=== PATIENT | female | born 2000 | race Caucasian/White ===

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

== ENCOUNTER 2020-02-18 15:13 | Outpatient (CLI) | payer BC, SELFPAY ==
[2020-02-18 15:33] VITALS: BMI 32.5
[2020-02-18 15:50] VITALS: BP 148/83; PULSE 94; RESP 17; TEMP 36.8
[2020-02-18 15:51] VITALS: BMI 32.5
[2020-02-18 15:53] LABS: Microscopic, Urine URINE MICROSCOPIC (MICROSCOPIC)
[2020-02-18 15:55] LABS: Appearance,Urine CLEAR (Clear); Bilirubin,Urine Negative (Negative); Blood, Urine TRACE-I (Negative); Color,Urine YELLOW (Yellow); Glucose,Urine (UA) Negative (Negative); Ketones,Urine Negative (Negative); Leukocyte Esterase,Urine TRACE (Negative); Nitrate,Urine Negative (Negative); PH,Urine 6.5 (5.0-8.5); Protein,Urine Negative (Negative); Urobilinogen,Urine 0.2 EU/dl (0.2)
[2020-02-18 16:01] LABS: Bacteria,Urine Trace /lpf; Hyaline Casts,Urine Occasional #/lpf (0); RBC,Urine Occasional #/hpf (0-3)
[2020-02-18 16:06] LABS: Amphetamine/Metha Screen,Urine Negative ng/ml (<1000); Barbiturates Screen,Urine Negative ng/ml (<200)
[2020-02-18 16:07] LABS: Benzodiazepines Screen,Urine Negative ng/ml (<200); Cannabinoid Screen,Urine Negative ng/ml (<50)
[2020-02-18 16:08] LABS: Cocaine Screen,Urine Negative ng/ml (<300)
[2020-02-18 16:09] LABS: Methadone Screen,Urine Negative ng/ml (<300); Opiate Screen,Urine Negative ng/ml (<300)
[2020-02-18 16:10] LABS: Phencyclidine Screen,Urine Negative ng/ml (<25)
== END 2020-02-18 16:55 | disposition home or self-care (01) ==
LOC: OBOUT 15:17 → OB 15:19
PROVIDERS: Visit Provider Obstetrics & Gynecology
DX: O16.3 Unspecified maternal hypertension, third trimester (principal); Z3A.35 35 weeks gestation of pregnancy
CPT/HCPCS: 59025; 80305; 81001; G0463

== ENCOUNTER 2021-09-25 03:09 | Emergency (ER) | payer BC, SELFPAY ==
[2021-09-25 03:10] VITALS: BP 148/97; PULSE 97; RESP 16; TEMP 36.8; O2SAT 98; BMI 32.5
--- NOTE | 2021-09-25 03:33 | US_ITS ---
PROCEDURE INFORMATION: Exam: US , Transvaginal Exam date and time: 09/25/2021 3:33 AM Age: 21 years old Clinical indication: Lmp or gestational age (in weeks): 8; Antepartum complications; ; Patient HX: Woke up x5 hrs ago with vaginal bleeding; Additional info: Bleeding during TECHNIQUE: Imaging protocol: Real-time transvaginal obstetrical ultrasound of the maternal pelvis with image documentation. Transvaginal imaging was used for better evaluation of the fetus, adnexa, and/or cervix. COMPARISON: No relevant prior studies available. FINDINGS: Gestation: A yolk sac measuring 0.6 side of cm is noted. heart rate: Heart rate of 167 bpm was noted. Placenta: There is a small area subchorionic hemorrhage measuring 1.7 x 0.7 x 1.4 cm present. BIOMETRY: Gestational age (AUA): Intrauterine gestation with a crown lump length of 2.0 cm is seen this a colo masoud to it at mean gestational age of 8 weeks and 5 days. MATERNAL: Right ovary/adnexa: The right ovary measures 4.0 x 3.4 x 1.0 cm. Left ovary/adnexa: The left ovary 3.1 x 7.3 x 2.0 cm. IMPRESSION: Single viable intrauterine gestation with a mean gestational age of 8 weeks and 5 days. Small to moderate size area of subchorionic hemorrhage is present.
[2021-09-25 03:40] LABS: Microscopic, Urine URINE MICROSCOPIC (MICROSCOPIC)
[2021-09-25 03:43] LABS: Basophils # 0.1 K/mm3 (0-0.2); Basophils % 0.8 % (0.1-2.0); Eosinophils # 0.3 K/mm3 (0.0-0.4); Eosinophils % 1.8 % (0.1-12.0); Hematocrit 38.8 % (37.0-47.0); Hemoglobin 13.1 g/dL (12.2-16.2); Lymphocytes # 5.9 K/mm3 (0.7-4.5); Lymphocytes % 41.9 % (10-50); Mean Corpuscular HGB Conc 33.8 g/dL (31.8-35.4); Mean Corpuscular Hemoglobin 30.3 pg (27.0-31.2); Mean Corpuscular Volume 89.7 fl (81-99); Mean Platelet Volume 6.8 fl (7.4-10.4); Monocytes # 0.9 K/mm3 (0.1-1.0); Monocytes % 6.4 % (1.7-9.3); Neutrophils # 6.9 K/mm3 (1.8-7.8); Neutrophils % 49.1 % (37.0-80.0); Platelet Count 392 K/mm3 (142-424); Red Blood Count 4.32 M/mm3 (4.20-5.40); Red Cell Distribution Width 12.6 % (11.5-17.5)
[2021-09-25 03:50] LABS: Alanine Aminotransferase 16 U/L (12-78); Albumin Level 4.4 g/dl (3.5-5.0); Albumin/Globulin Ratio 1.5 (1.1-1.8); Alkaline Phosphatase 58 U/L (38-126); Anion Gap 11.7 mEq/L (5-15); Aspartate Amino Transferase 34 U/L (14-36); Bilirubin,Total 0.3 mg/dl (0.2-1.3); Blood Urea Nitrogen 10 mg/dl (7-17); Calcium 9.5 mg/dl (8.4-10.2); Carbon Dioxide 24 mmol/L (22.0-30.0); Chloride 103 mmol/L (98-107); Creatinine Clearance Estimated 213 mL/min (50-200); Estimated Glomerular Filt Rate 125 ml/min (>60); GFR (African American) 151 ML/MIN (>60); Globulin 2.9 g/dL (1.3-3.2); Glucose 103 mg/dl (74-100); Potassium 3.7 mmoL/L (3.5-5.1); Sodium 135 mmol/L (136-145); Total Protein,Serum 7.3 g/dl (6.3-8.2)
[2021-09-25 03:55] LABS: Appearance,Urine CLOUDY (Clear); Bilirubin,Urine Negative (Negative); Blood, Urine 3+ (Negative); Glucose,Urine (UA) Negative (Negative); Ketones,Urine Negative (Negative); Leukocyte Esterase,Urine TRACE (Negative); Nitrate,Urine Negative (Negative); PH,Urine 6.5 (5.0-8.5); Protein,Urine 1+ (Negative); Specific Gravity, Urine >= 1.030 (1.005-1.030); Urobilinogen,Urine 0.2 EU/dl (0.2)
[2021-09-25 03:57] LABS: Color,Urine Amber (Yellow)
[2021-09-25 04:00] VITALS: BP 121/74; PULSE 76; O2SAT 100
[2021-09-25 04:06] LABS: Bacteria,Urine 1+ /lpf; RBC,Urine TNTC #/hpf (0-3)
[2021-09-25 05:00] VITALS: BP 141/71; PULSE 71; O2SAT 100
[2021-09-25 05:30] VITALS: BP 141/73; PULSE 77; O2SAT 100
--- NOTE | 2021-09-25 06:12 | HMH.EDPREG ---
ED Disposition Clinical Impression: Qualifiers: Weeks of gestation: 8 weeks Qualified Code(s): Z3A.08 - 8 weeks gestation of Subchorionic hemorrhage in first trimester Qualifiers: Fetus number: single or unspecified fetus Qualified Code(s): O41.8X10 - Other specified disorders of amniotic fluid and membranes, first trimester, not applicable or unspecified Disposition: Home, Self-Care Condition on Discharge: Good Instructions: DI for Vaginal Bleeding During Additional Instructions: call your ob this am Referrals: Provider,Referral, [Primary Care Provider] - - Critical Care Critical Care Time: No Attestation: On 09/25/21, the high probability of a clinically significant, sudden or life threatening deterioration of the following system(s) required my full and direct attention, intervention and personal management. The time I documented below is in addition to time spent performing reported procedures but includes the following listed in this critical care notation. Medical Decision Making - Medical Records Medical records reviewed: Yes: I reviewed the patient's medical records. - Ethan Inquiry Pt receiving controlled substance: No Vital Signs: 09/25/21 03:10 09/25/21 04:00 09/25/21 05:00 Temperature 98.3 F Temperature Source Oral Pulse Rate 76 71 Pulse Rate [Left] 97 H Respiratory Rate 16 Blood Pressure 121/74 141/71 H Blood Pressure [Left Arm] 148/97 H Blood Pressure Mean [Left Arm] 114 02 Sat by Pulse Oximetry 98 100 100 Oxygen Delivery Method Room Air Room Air Room Air 09/25/21 05:30 Temperature Temperature Source Pulse Rate 77 Pulse Rate [Left] Respiratory Rate Blood Pressure 141/73 H Blood Pressure [Left Arm] Blood Pressure Mean [Left Arm] 02 Sat by Pulse Oximetry 100 Oxygen Delivery Method Room Air - Lab Data Lab results reviewed: Yes: I reviewed the patient's lab results. Lab Results 09/25/21 03:16: Urine Color Jocelin, Urine Appearance Cloudy, Urine pH 6.5, Ur Specific [place] >= 1.030, Urine Protein 1+, Urine Glucose (UA) Negative, Urine Ketones Negative, Urine Blood 3+, Urine Nitrate Negative, Urine Bilirubin Negative, Urine Urobilinogen 0.2, Ur Leukocyte Esterase Trace, Urine RBC Tntc, Urine WBC 3-5, Urine Bacteria 1+ 09/25/21 03:16: WBC 14.0 H, RBC 4.32, Hgb 13.1, Hct 38.8, MCV 89.7, MCH 30.3, MCHC 33.8, RDW 12.6, Plt Count 392, MPV 6.8 L, Neut % (Auto) 49.1, Lymph % (Auto) 41.9, [place] % (Auto) 6.4, Eos % (Auto) 1.8, Baso % (Auto) 0.8, Neut # (Auto) 6.9, Lymph # (Auto) 5.9 H, [place] # (Auto) 0.9, Eos # (Auto) 0.3, Baso # (Auto) 0.1 09/25/21 03:16: Sodium 135 L, Potassium 3.7, Chloride 103, Carbon Dioxide 24, Anion Gap 11.7, BUN 10, Creatinine 0.60, Estimated Creat Clear 213, Estimated GFR 125, Est GFR ( Amer) 151, Glucose 103 H, Calcium 9.5, Total Bilirubin 0.3, AST 34, ALT 16, Alkaline Phosphatase 58, Total Protein 7.3, Albumin 4.4, Globulin 2.9, Albumin/Globulin Ratio 1.5 09/25/21 03:16: HCG, Quant [id number] H Result diagrams: 09/25/21 03:16 09/25/21 03:16 Orders (Tests/Meds): ED MEDICATIONS Discontinued Medications Generic Name Dose Route Start Last Admin Trade Name Freq PRN Reason Stop Dose Admin Sodium Chloride 1,000 mls @ 999 mls/hr 09/25/21 03:45 09/25/21 03:41 Sod Chlor 0.9% 1000ml Bag IV 09/25/21 04:45 999 mls/hr .Q1H1M RIO Administration ORDERS Category Date Time Status ABO/RH Type Stat BBK 09/25/21 06:25 Received - US Data US Images: Pelvis ED US Reviewed: Yes: I have viewed radiologist's interpretation Findings Narrative: iup with subchorioic hemmorrhage Medical Decision Narrative: please call ob this am for close follow up HPI - General Chief complaint: Vaginal Bleeding Stated complaint: Possible Miscarriage 8 wks Time Seen by Provider: 09/25/21 04:00 Mode of Arrival: Ambulatory Source of Information: Patient, Medical Record Limitations: No Limitati
[2021-09-25 07:26] VITALS: BP 126/75; PULSE 76; RESP 18; TEMP 37; O2SAT 100
== END 2021-09-25 07:26 | disposition home or self-care (01) ==
PROVIDERS: Emergency Provider Emergency Medicine; Referring Provider Obstetrics & Gynecology
DX: O41.8X10 Other specified disorders of amniotic fluid and membranes, first trimester, not applicable or unspecified (principal); Z3A.08 8 weeks gestation of pregnancy
CPT/HCPCS: 36415; 76817; 80053; 81001; 84702; 85025; 86900; 86901; 96365; 99283

== ENCOUNTER 2023-02-15 13:46 | Emergency (ER) | payer BC, SELFPAY ==
--- NOTE | 2023-02-15 13:51 | PC.NURSE ---
Dr. Munson at BS for pt eval
--- NOTE | 2023-02-15 13:52 | HMH.EDGENADL ---
Discharge Plan Disposition Patient Disposition: Home, Self-Care Condition: Good Prescriptions Prescriptions: No Action phenazopyridine 200 MG Tablet 200 pow PO TID Qty: 6 0RF ciprofloxacin HCl [Cipro] 500 MG Tablet 500 mg PO BID Qty: 20 0RF promethazine 12.5 MG tablet 12.5 mg PO Q6H PRN (Reason: Vomiting) Qty: 6 0RF Referrals Follow up/Referrals: Provider,Referral, MD [Primary Care Provider] - See instructions Clinical Impressions Clinical Impression: Enteritis Instructions Patient Instructions: DI for Gastrointestinal Bleeding Discharge ED Provider: Son Munson General Adult HPI General Chief complaint: GI Bleed Stated complaint: Rectal bleeding Time Seen by Provider: 02/15/23 13:49 History of Present Illness HPI narrative: This is a very pleasant 22-year-old lady with no significant past medical history who presents to the ED with a chief complaint of rectal bleeding. This happened just prior to arrival. Patient described bright red blood. Yesterday she had some abdominal cramping but denies any pain today. No melena. No hematemesis. No coffee-ground emesis. No history of GI bleeding. Denies any syncope, presyncope, chest pain, shortness of breath. Related Data Previous Rx's Medication Instructions Recorded ciprofloxacin HCl 500 mg tablet 500 mg PO BID ##20 10/22/18 (Cipro) phenazopyridine 200 mg tablet 200 pow PO TID ##6 10/22/18 promethazine 12.5 mg tablet 12.5 mg PO Q6H PRN Vomiting #6 tabs 09/04/19 Allergies Allergy/AdvReac Type Severity Reaction Status Date / Time sulfamethoxazole Allergy Verified 08/07/18 19:28 [From Bactrim] trimethoprim [From Bactrim] Allergy Verified 08/07/18 19:28 [facility] Disclaimer: The information contained in this section may have been updated after the patient was seen, as this information can be updated by other users. Social History Smoking Status: Never smoker alcohol intake: never current occupational status: employed Travel in the last 8 weeks: None ROS Obtained: Yes All systems reviewed & no additional complaints except as documented Physical Exam General General appearance: alert Head Head exam: atraumatic Eye Eye exam: Present normal appearance Neck Neck exam: Present normal inspection Chest Chest inspection: Present normal inspection Respiratory Respiratory exam: Present normal lung sounds bilaterally Cardiovascular Cardiovascular exam: Present regular rate and normal rhythm Abdominal Exam Abdominal exam: Present soft Neurological Exam Neurological exam: Present alert Medical Decision Making Ethan Inquiry Pt receiving controlled substance: No Vital Signs: 02/15/23 14:08 02/15/23 14:08 02/15/23 14:15 Temperature 98.5 F Temperature Source Oral Pulse Rate 93 H 95 H Pulse Rate [Left] 100 H Respiratory Rate 16 Blood Pressure Blood Pressure [Right Arm] 136/87 Blood Pressure Mean Blood Pressure Mean [Right Arm] 103 Blood Pressure Source Blood Pressure Position 02 Sat by Pulse Oximetry 98 98 99 Oxygen Delivery Method 02/15/23 14:30 02/15/23 15:30 Temperature 98.1 F Temperature Source Oral Pulse Rate 86 83 Pulse Rate [Left] Respiratory Rate 18 Blood Pressure 133/75 125/78 Blood Pressure [Right Arm] Blood Pressure Mean 94 Blood Pressure Mean [Right Arm] Blood Pressure Source Automatic Cuff Blood Pressure Position Sitting 02 Sat by Pulse Oximetry 99 Oxygen Delivery Method Room Air Room Air Lab Data Lab Results 02/15/23 14:00: WBC 10.2, RBC 4.48, Hgb 13.6, Hct 39.7, MCV 88.8, MCH 30.3, MCHC 34.1, RDW 12.7, Plt Count 336, MPV 7.4, Neut % (Auto) 47.7, Lymph % (Auto) 40.4, [place] % (Auto) 8.7, Eos % (Auto) 2.5, Baso % (Auto) 0.7, Neut # (Auto) 4.9, Lymph # (Auto) 4.1, [place] # (Auto) 0.9, Eos # (Auto) 0.3, Baso # (Auto) 0.1 02/15/23 14:00: Sodium 139, Potassium 3.5, Chloride 98, Carbon Dioxide 25, Anion Gap 19.5 H, BUN 11, Creatin
--- NOTE | 2023-02-15 13:54 | CT_ITS ---
PROCEDURE INFORMATION: Exam: CT Abdomen And Pelvis With Contrast Exam date and time: 02/15/2023 2:51 PM Age: 22 years old Clinical indication: Abdominal pain; Localized; Lower; Additional info: Abd pain/ gi bleeding TECHNIQUE: Imaging protocol: Computed tomography of the abdomen and pelvis with contrast. Radiation optimization: All CT scans at this facility use at least one of these dose optimization techniques: automated exposure control; mA and/or kV adjustment per patient size (includes targeted exams where dose is matched to clinical indication); or iterative reconstruction. Contrast material: ISOVUE; Contrast volume: 75 ml; Contrast route: IV; REPORTING DATA: Count of CT and Cardiac NM exams in prior 12 months: This patient has received 0 known CTs and 0 known cardiac nuclear medicine studies in the 12 months prior to the current study. COMPARISON: CR ABDACU ABD ACUTE(MUL VIEWS) 08/07/2016 7:52 PM FINDINGS: Lungs: Lung bases are unremarkable. Mediastinal space: Distal esophagus is fluid distended which can be seen in the context of esophageal dysmotility. Liver: No focal hepatic lesions. A focus of hypoattenuation within the left hepatic lobe adjacent to the falciform ligament likely represents focal fatty infiltration and/or perfusional changes. Gallbladder and bile ducts: Gallbladder is distended without radiopaque cholelithiasis. No biliary ductal dilation. Pancreas: No peripancreatic fluid stranding. No main pancreatic ductal dilation. Spleen: No splenomegaly. Adrenal glands: The adrenal glands are normal. Kidneys and ureters: Nephrograms are symmetric. No nephrolithiasis or hydroureteronephrosis on either side. No solid lesions Stomach and bowel: There is circumferential wall thickening and stratification of the wall along the proximal small bowel loops. No discrete transition point. No discrete hemorrhage. Appendix: A normal appendix is identified. Intraperitoneal space: There is no evidence of free intraperitoneal or pelvic fluid. Vasculature: Aorta is nonaneurysmal. Lymph nodes: No evidence of retroperitoneal or mesenteric lymphadenopathy. Urinary bladder: Urinary bladder is unremarkable. Reproductive: There is an intrauterine contraceptive device in place, which appears appropriately positioned within the endometrial canal. Bones/joints: Unremarkable. No acute fracture. Soft tissues: Unremarkable. IMPRESSION: 1. Findings can be attributed to inflammatory/infectious enteritis in the appropriate clinical context. No hemorrhagic source in the abdomen or pelvis. 2. Distal esophagus is fluid distended which can be seen in the context of esophageal dysmotility.
[2023-02-15 14:08] VITALS: BP 136/87; PULSE 100; PULSE 93; RESP 16; TEMP 36.9; O2SAT 98; BMI 34.9
[2023-02-15 14:11] LABS: Chloride 98 mmol/L (98-107); Potassium 3.5 mmoL/L (3.5-5.1); Sodium 139 mmol/L (136-145)
[2023-02-15 14:12] LABS: Basophils # 0.1 K/mm3 (0-0.2); Basophils % 0.7 % (0.1-2.0); Eosinophils # 0.3 K/mm3 (0.0-0.4); Eosinophils % 2.5 % (0.1-12.0); Hematocrit 39.7 % (37.0-47.0); Hemoglobin 13.6 g/dL (12.2-16.2); Lymphocytes # 4.1 K/mm3 (0.7-4.5); Lymphocytes % 40.4 % (10-50); Mean Corpuscular HGB Conc 34.1 g/dL (31.8-35.4); Mean Corpuscular Hemoglobin 30.3 pg (27.0-31.2); Mean Corpuscular Volume 88.8 fl (81-99); Mean Platelet Volume 7.4 fl (7.4-10.4); Monocytes # 0.9 K/mm3 (0.1-1.0); Monocytes % 8.7 % (1.7-9.3); Neutrophils # 4.9 K/mm3 (1.8-7.8); Neutrophils % 47.7 % (37.0-80.0); Platelet Count 336 K/mm3 (142-424); Red Blood Count 4.48 M/mm3 (4.20-5.40); Red Cell Distribution Width 12.7 % (11.5-17.5); White Blood Count 10.2 K/mm3 (4.8-10.8)
[2023-02-15 14:14] LABS: Alanine Aminotransferase 31 U/L (12-78); Albumin Level 4.7 g/dl (3.5-5.0); Albumin/Globulin Ratio 1.5 (1.1-1.8); Alkaline Phosphatase 81 U/L (38-126); Anion Gap 19.5 mEq/L (5-15); Aspartate Amino Transferase 37 U/L (14-36); Blood Urea Nitrogen 11 mg/dl (7-17); Carbon Dioxide 25 mmol/L (22.0-30.0); Estimated Glomerular Filt Rate 78 ml/min (>60); GFR (African American) 94 ML/MIN (>60); Globulin 3.2 g/dL (1.3-3.2); Total Protein,Serum 7.9 g/dl (6.3-8.2)
[2023-02-15 14:15] VITALS: PULSE 95; O2SAT 99
[2023-02-15 14:15] LABS: Calcium 9.7 mg/dl (8.4-10.2); Glucose 119 mg/dl (74-100)
[2023-02-15 14:16] LABS: Bilirubin,Total 0.1 mg/dl (0.2-1.3)
--- NOTE | 2023-02-15 14:21 | PC.NURSE ---
pt ambulatory to restroom with assistance, no complications
--- NOTE | 2023-02-15 14:23 | PC.NURSE ---
pt ambulatory back to ED room 10 without complications
[2023-02-15 14:30] VITALS: BP 133/75; PULSE 86; O2SAT 99
[2023-02-15 14:42] LABS: HCG,Quantitative < 2 mIU/ml (0-5.42)
--- NOTE | 2023-02-15 14:47 | PC.NURSE ---
pt transported to radiology via wheelchair.
--- NOTE | 2023-02-15 15:16 | PC.NURSE ---
er at bedside
[2023-02-15 15:30] VITALS: BP 125/78; PULSE 83; RESP 18; TEMP 36.7; O2SAT 98
== END 2023-02-15 15:33 | disposition home or self-care (01) ==
PROVIDERS: Emergency Provider Emergency Medicine
DX: K62.5 Hemorrhage of anus and rectum (principal); K52.9 Noninfective gastroenteritis and colitis, unspecified
CPT/HCPCS: 74177; 80053; 84702; 85025; 96374; 99284; 99285; J2405; Q9967

== ENCOUNTER → 2023-08-19 09:59 | Outpatient (CLI) | payer BC, SELFPAY ==
--- NOTE | 2023-08-19 10:04 | US_ITS ---
FINAL REPORT CLINICAL HISTORY: THYRODMEGALY COMPARISON: None FINDINGS: THYROID ULTRASOUND: The right lobe of the thyroid measures 4.5 x 1.2 x 1.6 cm in size. There is a focal nodule noted in the right thyroid lobe, measuring 5 x 3 x 4 mm in size, which is hyperechoic and isoechoic and solid. The left lobe of the thyroid gland measures 5.2 x 1.2 x 1.5 cm in size. There is a hypoechoic solid 4 x 5.3 x 5.5 mm nodule present, a TI-RADS 4 category nodule. The isthmus of the thyroid gland measures 2.4 mm in thickness. IMPRESSION: Small nodules noted bilaterally, on the left side a TI-RADS category 4 nodule, subcentimeter, which does not require follow-up at this time. Reviewed, Interpreted and Dictated by Maykel Myrick MD Transcribed by Jyoti Holliday Authenticated and [facility]
== END ==
PROVIDERS: PCP Nurse Practitioner Family; Visit Provider Nurse Practitioner Family
DX: E01.0 Iodine-deficiency related diffuse (endemic) goiter (principal)
CPT/HCPCS: 76536

== ENCOUNTER → 2023-09-24 13:05 | Outpatient (CLI) | payer BC, SELFPAY ==
[2023-09-24 13:41] LABS: Basophils # 0.1 K/mm3 (0-0.2); Basophils % 0.9 % (0.1-2.0); Eosinophils # 0.2 K/mm3 (0.0-0.4); Hematocrit 41.5 % (37.0-47.0); Lymphocytes # 3.3 K/mm3 (0.7-4.5); Lymphocytes % 42.5 % (10-50); Mean Corpuscular HGB Conc 33.9 g/dL (31.8-35.4); Mean Corpuscular Hemoglobin 31.1 pg (27.0-31.2); Mean Corpuscular Volume 91.9 fl (81-99); Mean Platelet Volume 6.6 fl (7.4-10.4); Monocytes # 0.6 K/mm3 (0.1-1.0); Monocytes % 7.6 % (1.7-9.3); Neutrophils # 3.5 K/mm3 (1.8-7.8); Platelet Count 314 K/mm3 (142-424); Red Blood Count 4.51 M/mm3 (4.20-5.40); White Blood Count 7.7 K/mm3 (4.8-10.8)
[2023-09-24 13:54] LABS: Urine Pregnancy, HCG Qual. Negative (Negative)
[2023-09-24 14:30] LABS: Free T4 (Free Thyroxine) 0.78 ng/dl (0.78-2.19)
[2023-09-25 18:10] LABS: Thyroid Peroxidase Antibodies 13 IU/mL (0-34)
== END ==
PROVIDERS: PCP Internal Medicine Adolescent Medicine; Visit Provider Nurse Practitioner
DX: E04.1 Nontoxic single thyroid nodule (principal); J35.1 Hypertrophy of tonsils
CPT/HCPCS: 36415; 81025; 84439; 84443; 85025; 86376

== ENCOUNTER 2023-09-30 07:08 | Day surgery (SDC) | payer BC, SELFPAY ==
[2023-09-24 12:56] VITALS: BMI 34.7
[2023-09-30] VITALS (9 sets, daily range): BP systolic 119–159; BP diastolic 70–102; PULSE 74–130; RESP 16–26; TEMP 36.3–36.7; O2SAT 95–99
[2023-09-30] MEDS: LACTATED RINGERS 1000ML 1,000 ML 25 ML IV (07:27)
--- NOTE | 2023-09-30 07:44 | EXP.ANES.CKL ---
[facility] Disclaimer: The information contained in this section may have been updated after the patient was seen, as this information can be updated by other users. Medical History Enlarged tonsils Thyroid nodule Family History (Updated 09/30/23 @ 07:18 by Le Vazquez RN) Other Family history of diabetes mellitus type II Family history of hypertension No significant family history Social History (Updated 09/30/23 @ 07:18 by Le Vazquez RN) Smoking Status: Never smoker alcohol intake: never substance use type: denies use current occupational status: employed Travel in the last 8 weeks: None [facility] Anesthesia Checklist Patient Identification Patient Identification: Arm Band Structural Data Admitted From: Home Planned Operative Procedure/s: Tonsillectomy and Adenoidectomy Consent for Planned Operative Procedure(s) Verified: Yes Verified Documents: Surgical Consent and History and Physical NPO Status Verified Time NPO: 00:00 Additional verifications Anesthesia Reactions: No Hx Blood Transfusions: No Blood Transfusion Reaction: No Airway Assessment Mallampati Score:: Class II C-Spine Mobility Assessed: Yes TMJ Mobility Assessed: Yes Dentition: Good Dentition Neurological Assessment Level of Consciousness: Awake and Alert Anesthesia Plan Anesthesia Risk discussed: Yes Anesthesia Plan: Verified ASA Class: II Anesthesia Type: General
--- NOTE | 2023-09-30 09:49 | EXP.OP.NOTE ---
Date of procedure: 09/30/23 Pre-op Diagnosis:: tonsils stones Post-op Diagnosis:: same Procedure performed:: tonsillectomy Surgeon:: Hood Perez MD Anesthesia: GETA Estimated blood loss (mL): 10 Operative findings:: 3+ cryptic tonsils Operative note:: The patient was brought to the OR and laid in supine position. General anesthesia was induced. The patient was prepped and draped in the usual fashion. Their mouth was suspended with a Kristie-Ren mouth gag. Examination of the palate revealed no palatal clefts. The palate was elevated with a red rubber catheter. Mirror examination revealed?no significant adenoid tissueophy. I then turned my attention towards the tonsils. The patient had 3+ tonsils bilaterally. First the right tonsil, and then the left tonsil were excised with Bovie cautery. Hemostasis was then achieved with suction cautery. The patient's nose and mouth were then thoroughly irrigated and suctioned out. Marcaine-soaked tonsil balls were placed in the tonsillar fossae for local anesthetic. These were then removed. Stomach was suctioned with an OG tube. All counts were confirmed correct. They were then turned back over to anesthesia to be awoken and extubated. Condition: stable Disposition: PACU Complications:: none
--- NOTE | 2023-09-30 10:01 | P.PNANES_ITS ---
[facility] Anesthesia Record Part I Anesthesia Record I Intake, IV Amount: 800 Hydration: Adequate Estimated blood loss (mL): 10 Urine output (mL): 0 Blood Products used (#): none Blood Pressure: 157/102 SaO2: 97 Pulse Rate: 130 Airway Patency: Patent Respiratory Rate: 26 Temperature: 97.3 F Patient is:: Drowsy and Stable
[2023-09-30] MEDS: HYDROMORPHONE 2MG/ML SYRINGE 0.5 MG IV ×2 (10:05→10:12)
--- NOTE | 2023-09-30 10:16 | SUR.PHASEI ---
Pt doing well, VSS, pain level has decreased from 7 to 3 after 0.5mg x2 of Dilaudid IV given per PACU orders. Resting comfortably at present, no bleeding noted in throat.
--- NOTE | 2023-10-01 14:02 | P.PNANES_ITS ---
[facility] Anesthesia Record Part II Anesthesia Record Part II Discharge Time: 10:24 Destination: Surgical Day Care (OP Surgery) PACU nurse assessment reviewed?: Yes Patient Condition:: Good Anesthesia Complications:: None Swallowing reflex intact?: Yes Airway Patency: Patent Cyanosis?: No Blood Pressure: 135/95 SaO2: 96 Respiratory Rate: 18 Pulse Rate: 75 Temperature: 98 F Mental Status: Alert & Oriented Pain level:: 2 Nausea and/or vomitting:: None Intake, IV Amount: 0 Hydration: Adequate
[2023-10-01 14:03] VITALS: BP 135/95; PULSE 75; RESP 18; TEMP 36.6; O2SAT 96
== END 2023-09-30 10:58 | disposition home or self-care (01) ==
PROVIDERS: PCP Nurse Practitioner Family; Visit Provider Student in an Organized Health Care Education/Training Program
PROC: (CPT 42826; principal; 2023-09-30 08:45)
DX: J03.90 Acute tonsillitis, unspecified (principal)
CPT/HCPCS: 42826; J2405

== ENCOUNTER 2023-10-03 20:22 | Emergency (ER) | payer BC, SELFPAY ==
[2023-10-03 20:23] VITALS: BP 146/99; PULSE 97; RESP 18; TEMP 36.6; O2SAT 98; BMI 34.3
[2023-10-03 20:33] VITALS: BP 147/97; PULSE 88; O2SAT 98
--- NOTE | 2023-10-03 20:34 | HMH.EDGENADL ---
Discharge Plan Disposition Patient Disposition: Home, Self-Care Prescriptions Prescriptions: No Action penicillin V potassium 500 mg tablet 500 mg PO BID ascorbic acid (vitamin C) [Vitamin C] 250 mg Tablet 250 mg PO DAILY cholecalciferol (vitamin D3) [Vitamin D3] 125 mcg (5,000 unit) Tablet 125 mcg PO DAILY prednisolone [Prednisolone] 15 mg/5 mL solution 15 mg PO DAILY 3 Days Qty: 15 0RF ondansetron HCl [ondansetron HCl] 4 mg tablet 4 mg PO TIDP PRN (Reason: Nausea) Qty: 10 0RF hydrocodone-acetaminophen 7.5-325 mg/15 mL solution 15 ml PO Q6H PRN (Reason: SEVERE PAIN.) 7 Days Qty: 420 0RF hydrocodone-acetaminophen 7.5-325 mg tablet 1 tab PO Q6H PRN (Reason: pain) 7 Days Qty: 28 0RF Referrals Follow up/Referrals: Lesley Portillo APRN [Primary Care Provider] - See instructions Activity Restrictions/Add. Instructions Additional Instructions/Restrictions: I spoke with our nurse practitioner as well as with Dr. Bragg who is on-call for Dr. Perez and they are both comfortable with you going home with close outpatient observation please return to the nearest emergency department if there is any significant hemorrhaging. Clinical Impressions Clinical Impression: Post tonsillectomy secondary hemorrhage Discharge ED Provider: Georgia Begum General Adult HPI General Chief complaint: Dental/Oral Stated complaint: post op 09/30, bleeding Time Seen by Provider: 10/03/23 20:27 Mode of Arrival: Ambulatory Source of Information: Patient Limitations: No Limitations Description of Symptoms (Recalled from ER Triage Doc. by RN): Pt had a recent tonsilectomy on 09-[address] Perez. Pt states she isnt having any pain, not coughing up blood, just tasted it. Upon assessment I do not see any active bleeding. History of Present Illness HPI narrative: Patient is a 23-year-old female presenting today 3 days postoperatively from tonsillectomy performed here at [place] with Dr. Perez. She had a very small amount of bleeding unable to quantify exactly how much and presented to the emergency department as she was told to come immediately if there is any significant bleeding. She denies any ongoing bleeding at the moment difficulty breathing dehydration nausea vomiting etc. Related Data Home Medications Medication Instructions Recorded Confirmed penicillin V potassium 500 mg 500 mg PO BID Infection 09/24/23 09/30/23 tablet ascorbic acid (vitamin C) 250 mg 250 mg PO DAILY 09/30/23 09/30/23 tablet (Vitamin C) cholecalciferol (vitamin D3) 125 125 mcg PO DAILY 09/30/23 09/30/23 mcg (5,000 unit) tablet (Vitamin D3) Previous Rx's Medication Instructions Recorded hydrocodone 7.5 mg-acetaminophen 1 tab PO Q6H PRN pain 7 days #28 09/30/23 325 mg tablet tabs hydrocodone 7.5 mg-acetaminophen 15 ml PO Q6H PRN SEVERE PAIN. 7 09/30/23 325 mg/15 mL oral solution days #420 mL ondansetron HCl 4 mg tablet 4 mg PO TIDP PRN Nausea #10 tabs 09/30/23 prednisolone 15 mg/5 mL oral 15 mg (5 mL) PO DAILY 3 days #15 mL 09/30/23 solution Allergies Allergy/AdvReac Type Severity Reaction Status Date / Time sulfamethoxazole Allergy Verified 09/30/23 07:18 [From Bactrim] trimethoprim [From Bactrim] Allergy Verified 09/30/23 07:18 [facility] Disclaimer: The information contained in this section may have been updated after the patient was seen, as this information can be updated by other users. Medical History (Updated 10/03/23 @ 20:36 by Georgia Begum MD) Enlarged tonsils Thyroid nodule Family History (Updated 09/30/23 @ 07:18 by Le Vazquez RN) Other Family history of diabetes mellitus type II Family history of hypertension No significant family history Social History (Updated 09/30/23 @ 07:45 by Dane Solis CRNA) Smoking Status: Never smoker alcohol intake: never substance use type: denies use current occupational status: employed Travel in the last 8 weeks: None ROS Obtained: Yes All systems reviewed & no additional complaints except as documented Physical Exam General General appearance: alert and in no apparent distress ENT ENT exam: Present other (Bilateral tonsillar fossa's without obvious clot dislodgment or ongoing hemorrhage patient tolerating secretions fine no evidence of any purulence etc.) Respiratory Respiratory exam: Present normal lung sounds bilaterally; Absent respiratory distress Cardiovascular Cardiovascular exam: Present regular rate; Absent tachycardia Neurological Exam Neurological exam: Present alert and oriented X3 Medical Decision Making Ethan Inquiry Pt receiving controlled substance: No Vital Signs: 10/03/23 20:23 10/03/23 20:33 Temperature 98 F Temperature Source Oral Pulse Rate 88 Pulse Rate [Left] 97 H Respiratory Rate 18 Blood Pressure 147/97 H Blood Pressure [Right Arm] 146/99 H Blood Pressure Mean [Right Arm] 114 Blood Pressure Source [Right Arm] Automatic Cuff Blood Pressure Position [Right Arm] Supine 02 Sat by Pulse Oximetry 98 98 Oxygen Delivery Method Room Air Room Air Medical Decision Narrative: Patient is a very stable 23-year-old female presenting today with post tonsillectomy hemorrhaging. At the moment there does not appear to be any ongoing bleeding. Will discuss the case with Dr. Perez or his customer success representative who is on-call for his team and will reassess and discussed with the patient and family. Reassessment 844 we are still trying to find out who is on-call for Dr. Perez and to discuss the case with him. I went back to discuss further with the patient try to get her to quantify exactly how much bleeding there was. She states that she saw a video of the back of her throat and that there was a very small speck of blood no significant bleeding with no coughing up of any blood. Therefore the bleeding was merely specks of bleeding. The eschars are still in place no obvious bleeding on my exam while this is very high risk from a secondary hemorrhaging standpoint this is a very minor amount of bleeding and may be appropriate for close outpatient follow-up and observation and be treated conservatively. Reassessment 9 PM I was able to speak with Ramya the nurse practitioner on-call for Dr. Perez and I also spoke with Dr. Bragg who is the surgeon on-call at the [facility] with Dr. Perez's team. After discussing the case with him and with Ramya both are very comfortable with the patient going home with close outpatient follow-up. Family is agreeable to this plan and patient was discharged in a stable condition. Critical Care Critical Care Time Critical Care Time: No
--- NOTE | 2023-10-03 20:44 | PC.NURSE ---
on phone with siva lomeli
--- NOTE | 2023-10-03 20:57 | PC.NURSE ---
received on-call phone call. speaking with patient and family member at this time.
[2023-10-03 21:01] VITALS: BP 147/97; PULSE 91; RESP 16; TEMP 36.6; O2SAT 98
== END 2023-10-03 21:02 | disposition home or self-care (01) ==
PROVIDERS: Emergency Provider Student in an Organized Health Care Education/Training Program; PCP Nurse Practitioner Family
DX: R04.1 Hemorrhage from throat (principal); Y83.6 Removal of other organ (partial) (total) as the cause of abnormal reaction of the patient, or of later complication, without mention of misadventure at the time of the procedure
CPT/HCPCS: 99283

== ENCOUNTER 2023-10-13 21:07 | Emergency (ER) | payer BC, SELFPAY ==
[2023-10-13 21:09] VITALS: BP 147/85; PULSE 101; RESP 16; TEMP 37.2; O2SAT 99; BMI 33.5
--- NOTE | 2023-10-13 21:25 | PC.NURSE ---
Dr. Fausto Preez will return call
--- NOTE | 2023-10-13 21:26 | HMH.EDGENADL ---
Discharge Plan Disposition Patient Disposition: Home, Self-Care Prescriptions Prescriptions: No Action ascorbic acid (vitamin C) [Vitamin C] 250 mg Tablet 250 mg PO DAILY cholecalciferol (vitamin D3) [Vitamin D3] 125 mcg (5,000 unit) Tablet 125 mcg PO DAILY hydrocodone-acetaminophen 7.5-325 mg tablet 1 tab PO Q6H PRN (Reason: pain) 7 Days Qty: 28 0RF Referrals Follow up/Referrals: Lesley Portillo APRN [Primary Care Provider] - See instructions Activity Restrictions/Add. Instructions Additional Instructions/Restrictions: Please remain n.p.o. until the morning. You have no more bleeding after tomorrow morning, resume normal diet. Clinical Impressions Clinical Impression: Post tonsillectomy secondary hemorrhage Discharge ED Provider: Stevo Mckinney General Adult HPI General Chief complaint: Recheck/Abnormal Lab/Rx Stated complaint: tonsillectomy bleed 13 days post op Time Seen by Provider: 10/13/23 21:18 Mode of Arrival: Ambulatory Source of Information: Patient Limitations: No Limitations Description of Symptoms (Recalled from ER Triage Doc. by RN): Patient had a tonsillectomy 13 days ago, patient started having bleeding that lasted for about 30 minutes. No longer bleeding. History of Present Illness HPI narrative: 23-year-old female had tonsillectomy 13 days ago presents with right-sided bleeding at home. It lasted for approximately half an hour. She reports it was large in volume. She had a very small amount of bleeding a few days ago as well and was seen in ED at that time. Related Data Home Medications Medication Instructions Recorded Confirmed ascorbic acid (vitamin C) 250 mg 250 mg PO DAILY 09/30/23 10/08/23 tablet (Vitamin C) cholecalciferol (vitamin D3) 125 125 mcg PO DAILY 09/30/23 10/08/23 mcg (5,000 unit) tablet (Vitamin D3) Previous Rx's Medication Instructions Recorded hydrocodone 7.5 mg-acetaminophen 1 tab PO Q6H PRN pain 7 days #28 09/30/23 325 mg tablet tabs Allergies Allergy/AdvReac Type Severity Reaction Status Date / Time sulfamethoxazole Allergy Verified 10/08/23 10:06 [From Bactrim] trimethoprim [From Bactrim] Allergy Verified 10/08/23 10:06 [facility] Disclaimer: The information contained in this section may have been updated after the patient was seen, as this information can be updated by other users. Medical History (Updated 10/13/23 @ 23:13 by Stevo Mckinney MD) Enlarged tonsils Thyroid nodule Surgical History (Updated 10/08/23 @ 10:05 by Leonor Owen CMA) Status post tonsillectomy Family History (Updated 09/30/23 @ 07:18 by Le Vazquez RN) Other Family history of diabetes mellitus type II Family history of hypertension No significant family history Social History (Updated 09/30/23 @ 07:45 by Dane Solis CRNA) Smoking Status: Never smoker alcohol intake: never substance use type: denies use current occupational status: employed Travel in the last 8 weeks: None ROS Obtained: Yes All systems reviewed & no additional complaints except as documented Physical Exam General General appearance: alert and in no apparent distress Head Head exam: atraumatic and normocephalic Eye Eye exam: Present normal appearance, PERRL and EOMI ENT ENT exam: Present normal external ear exam and other (Beefy/erythematous right tonsillar bed, no large adherent clots, no active bleeding. Left tonsillar bed unremarkable in appearance) Neck Neck exam: Present normal inspection and full ROM Chest Chest inspection: Present normal inspection and symmetric chest wall rise; Absent tenderness Respiratory Respiratory exam: Present normal lung sounds bilaterally; Absent respiratory distress Cardiovascular Cardiovascular exam: Present regular rate and normal rhythm Abdominal Exam Abdominal exam: Present soft; Absent distention, tenderness or guarding Extremities Exam Extremities exam: Present normal inspection; Absent edema or joint swelling Back Exam Back exam: Present normal inspection; Absent tenderness Neurological Exam Neurological exam: Present alert and oriented X3; Absent motor sensory deficit Psychiatric Psychiatric exam: Present normal affect and normal mood Skin Skin exam: Present warm, dry and normal color Lymphatic Lymphatic Findings: no adenopathy Medical Decision Making Medical Records Medical records reviewed: Yes I reviewed the patient's medical records. Ethan Inquiry Pt receiving controlled substance: No Ethan was queried for this patient: No Vital Signs: 10/13/23 21:09 10/13/23 23:21 Temperature 99.0 F 99.1 F Temperature Source Oral Oral Pulse Rate 74 Pulse Rate [Radial] 101 H Respiratory Rate 16 16 Blood Pressure 122/72 Blood Pressure [Right Arm] 147/85 H Blood Pressure Mean [Right Arm] 105 Blood Pressure Source [Right Arm] Automatic Cuff Blood Pressure Position Sitting Blood Pressure Position [Right Arm] Sitting 02 Sat by Pulse Oximetry 99 Oxygen Delivery Method Room Air Room Air Lab Data Lab results reviewed: Yes I reviewed the patient's lab results. Lab Results 10/13/23 22:40: WBC 16.8 H, RBC 4.41, Hgb 13.5, Hct 39.8, MCV 90.2, MCH 30.6, MCHC 34.0, RDW 13.0, Plt Count 355, MPV 7.3 L, Neut % (Auto) 66.7, Lymph % (Auto) 26.9, [place] % (Auto) 4.2, Eos % (Auto) 1.3, Baso % (Auto) 0.9, Neut # (Auto) 11.2 H, Lymph # (Auto) 4.5, [place] # (Auto) 0.7, Eos # (Auto) 0.2, Baso # (Auto) 0.2, Total Counted 100, Neutrophils % (Manual) 65, Lymphocytes % (Manual) 28, Monocytes % (Manual) 6, Eosinophils % (Manual) 1, Platelet Estimate Normal, RBC Morphology Normal 10/13/23 22:40 Orders (Tests/Meds): ORDERS Category Date Time Status CBC w/Auto Diff [Complete Blood Count Auto Diff] Stat Lab 10/13/23 22:40 Completed Medical Decision Narrative: 23-year-old female, 13 days post tonsillectomy presents with approximately half hour of bleeding from right tonsil at home. Bleeding resolved prior to arrival. Reports bleeding was moderate to large in volume.. History was obtained via conversation with patient, chart review. On arrival, patient is [afebrile, hemodynamically stable, satting appropriately, alert, oriented x4, GCS 15], moving all extremities spontaneously. Full physical exam performed and significant for findings as above Differential includes but is not limited to post tonsillectomy bleeding. The on-call physician for the ENT group was called. Given patient is 13 days out, hemodynamically stable and without active bleeding, we will plan for CBC to assess for any anemia as well as obs for 2 hours in ED for any recurrent bleeding. Patient placed in observation status at 2130 with goal of avoiding unnecessary transfer or admission. On reassessment, patient remains normotensive and well-appearing. CBC shows mild leukocytosis but no evidence of anemia. Observation status ended at 2315, total time in observation of 1 hour and 45 minutes. Patient deemed appropriate for discharge. She was instructed remain n.p.o. until morning per ENT instructions. Instructed return with any new or worsening bleeding. Discharged in stable condition peer return precautions given. Procedures Risk/Benefits of Procedure(s) Were Explained: Yes Critical Care Critical Care Time Critical Care Time: No
[2023-10-13 22:52] LABS: Basophils # 0.2 K/mm3 (0-0.2); Basophils % 0.9 % (0.1-2.0); Eosinophils # 0.2 K/mm3 (0.0-0.4); Eosinophils % 1.3 % (0.1-12.0); Hematocrit 39.8 % (37.0-47.0); Hemoglobin 13.5 g/dL (12.2-16.2); Lymphocytes # 4.5 K/mm3 (0.7-4.5); Lymphocytes % 26.9 % (10-50); Mean Corpuscular Hemoglobin 30.6 pg (27.0-31.2); Mean Corpuscular Volume 90.2 fl (81-99); Mean Platelet Volume 7.3 fl (7.4-10.4); Monocytes # 0.7 K/mm3 (0.1-1.0); Monocytes % 4.2 % (1.7-9.3); Neutrophils # 11.2 K/mm3 (1.8-7.8); Neutrophils % 66.7 % (37.0-80.0); Platelet Count 355 K/mm3 (142-424); Red Blood Count 4.41 M/mm3 (4.20-5.40); White Blood Count 16.8 K/mm3 (4.8-10.8)
[2023-10-13 23:15] LABS: MANUAL DIFFERENTIAL MANUAL DIFFERENTIAL (MANUAL DIFF)
[2023-10-13 23:21] VITALS: BP 122/72; PULSE 74; RESP 16; TEMP 37.3; O2SAT 99
[2023-10-13 23:30] LABS: Eosinophils % 1 % (0-3); Lymphocytes % 28 % (10-50); Monocytes % 6 % (2-9); Neutrophils % 65 % (42-76); Platelet Estimate Normal; RBC Morphology Normal; Total Cells Counted 100
== END 2023-10-13 23:22 | disposition home or self-care (01) ==
PROVIDERS: Emergency Provider Emergency Medicine; PCP Nurse Practitioner Family
DX: R04.1 Hemorrhage from throat (principal); D72.829 Elevated white blood cell count, unspecified; Y83.6 Removal of other organ (partial) (total) as the cause of abnormal reaction of the patient, or of later complication, without mention of misadventure at the time of the procedure
CPT/HCPCS: 85007; 85025; 99285

== ENCOUNTER 2023-11-18 16:18 | Outpatient (POV) | payer BC, SELFPAY | END 2023-11-18 23:59 | disposition home or self-care (01) | LOC: SC 16:19 | PROVIDERS: PCP Nurse Practitioner Family; Visit Provider Dermatology | DX: Z00.00 Encounter for general adult medical examination without abnormal findings (principal) ==

== ENCOUNTER 2024-04-06 15:29 | Outpatient (POV) | payer BC, SELFPAY | END 2024-04-06 23:59 | disposition home or self-care (01) | LOC: SC 15:30 | PROVIDERS: PCP Nurse Practitioner Family; Visit Provider Dermatology | DX: Z00.00 Encounter for general adult medical examination without abnormal findings (principal) ==

== ENCOUNTER 2024-06-08 13:23 | Outpatient (CLI) | payer BC, SELFPAY ==
--- NOTE | 2024-06-08 13:34 | CT_ITS ---
FINAL REPORT CLINICAL HISTORY: HEADACHES IN TEMPLES. FINDINGS: Axial images of the head were obtained without contrast. Coronal reformatted images were also obtained.This study was performed with techniques to keep radiation doses as low as reasonably achievable (ALARA). Individualized dose reduction techniques using automated exposure control or adjustment of mA and/or kV according to the patient's size were employed. There is no evidence of intracranial hemorrhage or mass. The ventricular size is within normal limits. There is no evidence of shift of the midline structures. No abnormal extra axial fluid collection is identified. No skull abnormality is seen on the bone window images. IMPRESSION: No acute intracranial abnormality. Reviewed, Interpreted and Dictated by David Wall III, MD Transcribed by Basia Waggoner Authenticated and [facility]
== END 2024-06-08 23:59 | disposition home or self-care (01) ==
LOC: RAD 13:23
PROVIDERS: PCP Nurse Practitioner Family; Visit Provider Nurse Practitioner Family
DX: R51.9 Headache, unspecified (principal)
CPT/HCPCS: 70450

== ENCOUNTER 2024-11-25 22:34 | Emergency (ER) | payer BC, SELFPAY ==
[2024-11-25 22:37] VITALS: BP 139/77; PULSE 114; RESP 18; TEMP 37.2; O2SAT 96; BMI 34.2
[2024-11-25 22:44] VITALS: BP 135/81; PULSE 105; O2SAT 100
[2024-11-25 22:50] VITALS: BP 122/82; PULSE 96; O2SAT 100
[2024-11-25 23:00] VITALS: BP 127/71; PULSE 101; RESP 17; O2SAT 100
--- NOTE | 2024-11-25 23:01 | ECG_ITS ---
APPROVED REPORT Exam: Resting ECG HR:102 bpm ECG Measurements Heart Rate 102 AXES DE 143 P 55 QRSd 87 QRS 62 QT 313 T 21 QTc 372 Conclusion SINUS TACHYCARDIA NONSPECIFIC T-WAVE ABNORMALITY ABNORMAL RHYTHM ECG UNCONFIRMED REPORT Electronically signed by : ALDA DIGGS, 11/25/2024 23:54:45
--- NOTE | 2024-11-25 23:09 | ED_ITS ---
Discharge Plan Disposition Patient Disposition: Home, Self-Care Condition: Good Prescriptions Prescriptions: No Action Mirena 21 mcg/24hr (up to 8 yrs) 52 mg intrauterine device See Rx Instructions .ROUTE .COMPLEX Rx Instructions: IUD Referrals Follow up/Referrals: Lesley Portillo APRN [Primary Care Provider] - See instructions Activity Restrictions/Add. Instructions Additional Instructions/Restrictions: Please follow up with your primary care provider. Please return to the emergency department if you develop any new or worsening symptoms or become concerned for your health. Clinical Impressions Clinical Impression: Syncope Qualifiers: Encounter type: initial encounter Print Language Print Language: Telugu Discharge ED Provider: Stevo Mckinney General Adult HPI General Chief complaint: Dizziness Stated complaint: dizzy Time Seen by Provider: 11/25/24 22:53 Mode of Arrival: Wheelchair Limitations: No Limitations Description of Symptoms (Recalled from ER Triage Doc. by RN): Pt arrives with c/o not feeling well. Pt states she went to the tanning bed this morning and appears to have a sunburn. Pt states she has had 2 episodes where she has attempted to get out of bed and has passed out. Pt states she has been shaky History of Present Illness HPI narrative: 24-year-old female without significant past medical history presents for presyncope/syncopal episode. She went to the tanning bed and got a sunburn this morning. She spent most of the day sleeping and when she got up out of bed she felt like she was going to blackout. It happened again after getting up from a seated position a couple hours later. She took a shower and after getting out of the shower she passed out. She denies any heart history, no recent fever or illness, no chest pain shortness of breath or any other symptoms at this time. Related Data Home Medications ?Medication ?Instructions ?Recorded ?Confirmed levonorgestrel (Mirena) See Rx Instructions .Route .COMPLEX 08/03/24 11/25/24 Allergies Allergy/AdvReac Type Severity Reaction Status Date / Time sulfamethoxazole (From Allergy Verified 09/21/24 20:30 Bactrim) trimethoprim (From Bactrim) Allergy Verified 09/21/24 20:30 [facility] Disclaimer: The information contained in this section may have been updated after the patient was seen, as this information can be updated by other users. Medical History Thyroid nodule Surgical History History of wisdom tooth extraction Status post tonsillectomy Family History Other Family history of diabetes mellitus type II Family history of hypertension No significant family history Social History Smoking Status: Never smoker alcohol intake: never substance use type: denies use current occupational status: employed Travel in the last 8 weeks: None Have you lived/traveled outside [place] in past 30 days?: No Contact w/someone who lives/traveled outside [place] past 30 days?: No Exposure to someone with infectious disease in past 14 days?: No Do you have a fever (greater than 100.4 F or 38 C)?: No Have you tested positive for COVID-19: No Exposed to someone with COVID-19 in past 14 days?: No Do you have a sore throat?: No Do you have a cough?: No Do you have any weakness?: No Do you have any diarrhea?: No Are you experiencing any unusual bleeding?: No Do you have any muscle aches/pain?: No Do you have any abdominal pain?: No Are you experiencing loss of taste or smell?: No Other Medical History Have you received the Flu Vaccine for this season: Yes Have you received the Pneumonia Vaccine: No ROS Obtained: Yes All systems reviewed & no additional complaints except as documented Physical Exam General General appearance: alert and in no apparent distress Head Head exam: atraumatic and normocephalic Eye Eye exam: Present normal appearance, PERRL and EOMI ENT ENT exam: Present normal oropharynx and normal external ear exam Neck Neck exam: Present normal inspection and full ROM Chest Chest inspection: Present normal inspection and symmetric chest wall rise; Absent tenderness Respiratory Respiratory exam: Present normal lung sounds bilaterally; Absent respiratory distress Cardiovascular Cardiovascular exam: Present regular rate and normal rhythm Abdominal Exam Abdominal exam: Present soft; Absent distention, tenderness or guarding Extremities Exam Extremities exam: Present normal inspection; Absent edema or joint swelling Back Exam Back exam: Present normal inspection; Absent tenderness Neurological Exam Neurological exam: Present alert and oriented X3; Absent motor sensory deficit Psychiatric Psychiatric exam: Present normal affect and normal mood Skin Skin exam: Present warm, dry and erythema (Generalized erythema consistent with acute sunburn) Lymphatic Lymphatic Findings: no adenopathy Medical Decision Making Medical Records Medical records reviewed: Yes I reviewed the patient's medical records. Screening: Per USPSTF and CDC recommendations, given the prevalence of disease in our region, it is our hospital?s policy to screen for HIV and viral Hepatitis for all patients aged 18 and over and those with ongoing risk factors. Ethan Inquiry Pt receiving controlled substance: No Ethan was queried for this patient: No Vital Signs: 11/25/24 22:37 11/25/24 22:44 11/25/24 22:50 Temperature 98.9 F Temperature Source Temporal Artery Scan Pulse Rate 105 H 96 H Pulse Rate [Right] 114 H Respiratory Rate 18 Blood Pressure 135/81 122/82 Blood Pressure [Right Arm] 139/77 Blood Pressure Mean [Right Arm] 97 Blood Pressure Source Blood Pressure Source [Right Arm] Automatic Cuff Blood Pressure Position Blood Pressure Position [Right Arm] Sitting 02 Sat by Pulse Oximetry 96 100 100 Oxygen Delivery Method Room Air Room Air Room Air 11/25/24 23:00 11/25/24 23:30 11/25/24 23:59 Temperature 98.4 F Temperature Source Oral Pulse Rate 101 H 101 H 99 H Pulse Rate [Right] Respiratory Rate 17 15 16 Blood Pressure 127/71 116/66 116/66 Blood Pressure [Right Arm] Blood Pressure Mean [Right Arm] Blood Pressure Source Automatic Cuff Blood Pressure Source [Right Arm] Blood Pressure Position Sitting Blood Pressure Position [Right Arm] 02 Sat by Pulse Oximetry 100 100 Oxygen Delivery Method Room Air Room Air Room Air Lab Data Lab results reviewed: Yes I reviewed the patient's lab results. Lab Results 11/25/24 22:53: WBC 16.6 H, RBC 4.37, Hgb 13.3, Hct 38.9, MCV 89.0, MCH 30.4, MCHC 34.2, RDW 12.7, Plt Count 319, MPV 9.8, Neut % (Auto) 77.3, Lymph % (Auto) 10.8, [place] % (Auto) 9.7 H, Eos % (Auto) 1.1, Baso % (Auto) 0.7, Neut # (Auto) 12.8 H, Lymph # (Auto) 1.8, [place] # (Auto) 1.6 H, Eos # (Auto) 0.2, Baso # (Auto) 0.1, Total Counted 100, Neutrophils % (Manual) 81 H, Lymphocytes % (Manual) 14, Monocytes % (Manual) 4, Eosinophils % (Manual) 1, Platelet Estimate Normal, Stomatocytes 1+, Sodium 136, Potassium 4.2, Chloride 104, Carbon Dioxide 24, Anion Gap 12.2, BUN 15, Creatinine 0.80, Estimated Creat Clear 163, Estimated GFR 87, Est GFR ( Amer) 106, Glucose 106 H, Calcium 9.3, Magnesium 1.7, Total Bilirubin 1.0, AST 30, ALT 31, Alkaline Phosphatase 55, Total Protein 7.8, Albumin 5.0, Globulin 2.8, Albumin/Globulin Ratio 1.8, Serum HCG, Qual Negative 11/25/24 22:53 11/25/24 22:53 Orders (Tests/Meds): ED MEDICATIONS Discontinued Medications Generic Name Dose Route Start Last Admin Trade Name Freq PRN Reason Stop Dose Admin Lactated Ringer's 1,000 mls @ 999 mls/hr 11/25/24 23:15 11/25/24 23:22 Lactated Ringer's 1000 Ml Bag IV 11/26/24 00:15 999 mls/hr .Q1H1M RIO Administration ORDERS Category Date Time Status CBC w/Auto Diff [Complete Blood Count Auto Diff] Stat Lab 11/25/24 22:53 Completed CMP [Comprehensive Metabolic Panel] Stat Lab 11/25/24 22:53 Completed HCG Qualitative, Serum Stat Lab 11/25/24 22:53 Completed Magnesium Stat Lab 11/25/24 22:53 Completed Medical Decision Narrative: 24-year-old female that significant past medical history presents for presyncope and syncopal episode today. History was obtained via interactive discussion with patient. On arrival, patient is [afebrile, hemodynamically stable, satting appropriately, alert, oriented x4, GCS 15], moving all extremities spontaneously. Full physical exam performed and significant for erythema of the skin consistent with sunburn Differential includes but is not limited to vasovagal syncope, orthostatic hypotension, cardiogenic syncope, arrhythmia. Patient was given 1 L IV fluid bolus for symptomatic management and correction of underlying abnormalities. Workup initiated including CBC CMP mag test. On re-evaluation, patient [remains afebrile, HD stable.] Laboratory workup independently interpreted by me and significant for negative test, mild leukocytosis, no significant electrolyte derangement. EKG independently interpreted by me and significant for sinus tachycardia, rate of 102, no concerning ischemic changes, no evidence of arrhythmia. Given patient history, exam and workup, patient's presentation most likely represents orthostatic hypotension secondary to excessive vasodilation in the setting of sunburn. No evidence of emergent pathology at this time. Patient was discharged in stable condition with return precautions. Procedures Risk/Benefits of Procedure(s) Were Explained: Yes Critical Care Critical Care Time Critical Care Time: No
[2024-11-25 23:11] LABS: Basophils # 0.1 K/mm3 (0-0.2); Basophils % 0.7 % (0.1-2.0); Eosinophils # 0.2 K/mm3 (0.0-0.4); Eosinophils % 1.1 % (0.1-12.0); Hematocrit 38.9 % (37.0-47.0); Hemoglobin 13.3 g/dL (12.2-16.2); Lymphocytes # 1.8 K/mm3 (0.7-4.5); Lymphocytes % 10.8 % (10-50); Mean Corpuscular HGB Conc 34.2 g/dL (31.8-35.4); Mean Corpuscular Hemoglobin 30.4 pg (27.0-31.2); Mean Platelet Volume 9.8 fl (7.4-10.4); Monocytes # 1.6 K/mm3 (0.1-1.0); Monocytes % 9.7 % (1.7-9.3); Neutrophils # 12.8 K/mm3 (1.8-7.8); Neutrophils % 77.3 % (37.0-80.0); Platelet Count 319 K/mm3 (142-424); Red Blood Count 4.37 M/mm3 (4.20-5.40); Red Cell Distribution Width 12.7 % (11.5-17.5); White Blood Count 16.6 K/mm3 (4.8-10.8)
[2024-11-25 23:14] LABS: MANUAL DIFFERENTIAL MANUAL DIFFERENTIAL (MANUAL DIFF)
[2024-11-25 23:15] LABS: Chloride 104 mmol/L (98-107); Potassium 4.2 mmoL/L (3.5-5.1); Sodium 136 mmol/L (136-145)
[2024-11-25 23:18] LABS: Alanine Aminotransferase 31 U/L (12-78); Albumin/Globulin Ratio 1.8 (1.1-1.8); Alkaline Phosphatase 55 U/L (38-126); Anion Gap 12.2 mEq/L (5-15); Aspartate Amino Transferase 30 U/L (14-36); Blood Urea Nitrogen 15 mg/dl (7-17); Carbon Dioxide 24 mmol/L (22.0-30.0); Creatinine Clearance Estimated 163 mL/min (50-200); Estimated Glomerular Filt Rate 87 ml/min (>60); GFR (African American) 106 ML/MIN (>60); Globulin 2.8 g/dL (1.3-3.2); Total Protein,Serum 7.8 g/dl (6.3-8.2)
[2024-11-25 23:19] LABS: Calcium 9.3 mg/dl (8.4-10.2); Glucose 106 mg/dl (74-100); Magnesium 1.7 mg/dl (1.6-2.3)
[2024-11-25] MEDS: LACTATED RINGERS 1000ML 1,000 ML 999 ML IV (23:22)
[2024-11-25 23:24] LABS: HCG Qualitative, Serum Negative (Negative)
[2024-11-25 23:30] VITALS: BP 116/66; PULSE 101; RESP 15; O2SAT 100
[2024-11-25 23:58] LABS: Eosinophils % 1 % (0-3); Lymphocytes % 14 % (10-50); Monocytes % 4 % (2-9); Neutrophils % 81 % (42-76); Total Cells Counted 100
[2024-11-25 23:59] VITALS: BP 116/66; PULSE 99; RESP 16; TEMP 36.9; O2SAT 100
[2024-11-25 23:59] LABS: Platelet Estimate Normal; Stomatocytes 1+
== END 2024-11-25 23:59 | disposition home or self-care (01) ==
PROVIDERS: Emergency Provider Emergency Medicine; PCP Nurse Practitioner Family
DX: R55 Syncope and collapse (principal); R25.9 Unspecified abnormal involuntary movements; R42 Dizziness and giddiness; L55.9 Sunburn, unspecified
CPT/HCPCS: 80053; 83735; 84703; 85007; 85025; 85027; 93005; 96360; 99283; J7120

== ENCOUNTER 2024-12-20 15:13 | Outpatient (CLI) | payer BC, SELFPAY ==
--- NOTE | 2024-12-20 15:30 | US_ITS ---
PROCEDURE: US TRANSVAGINAL CLINICAL INDICATION: IUD placement COMPARISON: CT CT ABDOMEN PELVIS W CON from 02/15/2023 FINDINGS: Transvaginal sonographic images of the pelvis were obtained. UTERUS: 8.8 cm x 5.3cmx 4.3cm anteverted with a combined endometrial thickness of 3.9mm. There is an IUD within the uterine cavity in the correct position. LEFT OVARY: 5.7 cmx3.3cmx3.9cm with a volume of 38.5ml. There are 2 follicles in the left ovary measuring 2.9 cm and 3.3 cm respectively. RIGHT OVARY: 3.8 cmx 1.7 cmx1.7 cm with a volume of 5.7ml. There are several small follicles within the right ovary. Both ovaries are seen and appear normal. Doppler flow to both ovaries are seen. There is trace fluid in the cul-de-sac. IMPRESSION: 1. Anteverted uterus normal in shape and size. The endometrium is thin. 2. There is an IUD within the uterine cavity in the correct position. 3. Both ovaries are seen and appear normal. The left ovary has 2 follicles measuring 2.9 cm and 3.3 cm. The right ovary has multiple small follicles. 4. There is trace fluid in the cul-de-sac. Dictated by: Carlitos June MD 12/20/2024 15:57 Carlitos June MD in [place] 12/20/2024 15:57
== END 2024-12-20 23:59 | disposition home or self-care (01) ==
LOC: RAD 15:16
PROVIDERS: PCP Nurse Practitioner Family; Visit Provider Obstetrics & Gynecology
DX: Z97.5 Presence of (intrauterine) contraceptive device (principal)
CPT/HCPCS: 76830